=== PATIENT | female | born 1970 | race Asian ===

== ENCOUNTER → 2017-08-27 | Outpatient (CLI) | payer OTHER | END | disposition home or self-care (01) | LOC: KCIC US 14:23 | DX: D25.9 Leiomyoma of uterus, unspecified (principal); N88.8 Other specified noninflammatory disorders of cervix uteri | CPT/HCPCS: 76830; 76856 ==

== ENCOUNTER → 2017-09-19 | Day surgery (SDC) | payer OTHER ==
[~2017-09-19] MED LIST: IV RINGERS,LACTATED 1000ML 1,000 ML IV; LIDOCAINE 1% PF 2 ML VIAL. ID; LIDOCAINE 2% 100 MG/5 ML SYRINGE.; MORPHINE SULFATE 4 MG/ML DISP.SYRIN. IV; ONDANSETRON PF 4 MG/2 ML VIAL. IV; PROCHLORPERAZINE 10 MG/2 ML VIAL. IV; PROPOFOL 40 ML IV; fentaNYL PF VIAL 100 MCG/2 ML VIAL IV
[2017-09-19 10:39] LABS: NEG OBC UR NEG; POS OBC UR POS; U PREG PATIENT NEGATIVE (NEG)
== END | disposition home or self-care (01) ==
LOC: ENDOS 09:15
DX: K64.2 Third degree hemorrhoids (principal); K63.5 Polyp of colon; K25.9 Gastric ulcer, unspecified as acute or chronic, without hemorrhage or perforation; K21.0 Gastro-esophageal reflux disease with esophagitis; K29.50 Unspecified chronic gastritis without bleeding; K31.89 Other diseases of stomach and duodenum; E11.9 Type 2 diabetes mellitus without complications; E03.9 Hypothyroidism, unspecified; D50.9 Iron deficiency anemia, unspecified; Z83.3 Family history of diabetes mellitus; Z79.84 Long term (current) use of oral hypoglycemic drugs; Z98.890 Other specified postprocedural states; Z79.899 Other long term (current) drug therapy
CPT/HCPCS: 43239; 81025; 88305; 88342; J2704

== ENCOUNTER 2018-01-01 07:28 | Inpatient (IN) | payer OTHER ==
[2018-01-01] MEDS: IV RINGERS,LACTATED 1000ML 1,000 ML IV (07:00)
[~2018-01-01 07:28] MED LIST changes: -IV RINGERS,LACTATED 1000ML 1,000 ML IV; -LIDOCAINE 2% 100 MG/5 ML SYRINGE.; +MORPHINE SULFATE 2 MG/ML DISP.SYRIN. IV; -MORPHINE SULFATE 4 MG/ML DISP.SYRIN. IV; -PROPOFOL 40 ML IV
[2018-01-01] MEDS ORDERED: fentaNYL PF VIAL 100 MCG/2 ML VIAL ×3 (08:49→12:52)
[2018-01-01] MEDS ORDERED: ROCURONIUM 50 MG/5 ML VIAL. (08:49)
[2018-01-01] MEDS ORDERED: PROPOFOL 20 ML IV (08:49)
[2018-01-01] MEDS ORDERED: LIDOCAINE 2% PF Vial for OR 5 ML VIAL. (08:49)
[2018-01-01 09:07] LABS: POC GLUCOSE 119 mg/dL (70-99)
[2018-01-01 09:16] LABS: ADD MAN DIFF? NO
[2018-01-01 09:19] LABS: BASO # 0.1 x10^3/uL (0.0-0.2); BASO % 2 % (0-3); EOS # 0.1 x10^3/uL (0.0-0.7); EOS % 2 % (0-3); HEMATOCRIT 27.9 % (36.0-47.0); HEMOGLOBIN 8.5 g/dL (12.0-15.5); LYMPH # 1.4 x10^3/uL (1.0-4.8); LYMPH % 27 % (24-48); MEAN CORPUSCULAR HEMOGLOBIN 18 pg (25-35); MEAN CORPUSCULAR HGB CONC 30 g/dL (31-37); MEAN CORPUSCULAR VOLUME 59 fL (79-100); MONO # 0.5 x10^3/uL (0.0-1.1); MONO % 10 % (0-9); NEUT # 3.1 x10^3uL (1.8-7.7); NEUT % 60 % (31-73); PLATELET COUNT 299 x10^3/uL (140-400); RED BLOOD COUNT 4.74 x10^6/uL (3.50-5.40); RED CELL DISTRIBUTION WIDTH 21.7 % (11.5-14.5); WHITE BLOOD COUNT 5.2 x10^3/uL (4.0-11.0)
[2018-01-01 09:34] LABS: INR 1.1 (0.8-1.1); PARTIAL THROMBOPLASTIN TIME 29 SEC (24-38); PROTHROMBIN TIME PATIENT 13.5 SEC (11.7-14.0)
[2018-01-01 09:44] LABS: PLT ESTIMATE ADEQUATE (ADEQUATE)
[2018-01-01 09:46] LABS: ANISOCYTOSIS MOD; HYPOCHROMIA PRESENT; MICROCYTOSIS MARKED; POLYCHROMASIA SLIGHT
[2018-01-01 09:47] LABS: OVALOCYTES PRESENT
[2018-01-01] MEDS ORDERED: DEXAMETHASONE SOD PHOS 20 MG/5 ML VIAL. (09:47)
[2018-01-01] MEDS ORDERED: DESFLURANE 61 TO 120 MINUTES IH (09:47)
[2018-01-01] MEDS ORDERED: FAMOTIDINE 20 MG/2 ML VIAL (09:52)
[2018-01-01] MEDS ORDERED: ONDANSETRON PF 4 MG/2 ML VIAL. (10:00)
[2018-01-01] MEDS ORDERED: GLYCOPYRROLATE 1 MG/5 ML VIAL. (10:01)
[2018-01-01] MEDS ORDERED: NEOSTIGMINE 10 MG/10 ML VIAL. (10:01)
[2018-01-01] MEDS ORDERED: ePHEDrine PF IN SALINE 50 MG/5 ML DISP.SYRIN IV (10:15)
[2018-01-01] MEDS: GELATIN SPONGE SIZE 100. (11:45)
[2018-01-01] MEDS ORDERED: ONDANSETRON PF 4 MG/2 ML VIAL. IV (12:45)
[2018-01-01] MEDS ORDERED: PROCHLORPERAZINE 10 MG/2 ML VIAL. (12:52)
[2018-01-01 13:04] LABS: POC GLUCOSE 146 mg/dL (70-99)
[2018-01-01] MEDS: MORPHINE SULFATE 2 MG/ML DISP.SYRIN. IV ×2 (15:27→17:59)
[2018-01-01] MEDS ORDERED: HYDROmorphone 2 MG/ML VIAL IV (18:00)
[2018-01-01] MEDS: MORPHINE SULFATE 4 MG/ML DISP.SYRIN. IV (19:53)
[2018-01-01] MEDS ORDERED: DEXTROSE 50% 25 GM / 50ML DISP.SYRIN. IV (21:15)
[2018-01-01 21:20] LABS: POC GLUCOSE 132 mg/dL (70-99)
[2018-01-02] MEDS: IV NORMAL SALINE 1000ML BAG 1,000 ML IV (00:21)
[2018-01-02] MEDS: MORPHINE SULFATE 4 MG/ML DISP.SYRIN. IV ×2 (00:22→04:47)
[2018-01-02 05:17] LABS: HEMATOCRIT 24.5 % (36.0-47.0)
[2018-01-02 06:04] LABS: HEMOGLOBIN 7.4 g/dL (12.0-15.5)
[2018-01-02 08:14] LABS: POC GLUCOSE 120 mg/dL (70-99)
[2018-01-02] MEDS: oxyCODONE/APAP 5/325 1 TAB TABLET PO ×4 (10:20→23:23)
[2018-01-02 21:56] LABS: IMMEDIATE SPIN CROSSMATCH 1 4
[2018-01-02] MEDS: ACETAMINOPHEN 325 MG TABLET. PO (22:00)
[2018-01-03] MEDS: diphenhydrAMINE HCL 25 MG CAPSULE PO (04:46)
[2018-01-03] MEDS: oxyCODONE/APAP 5/325 1 TAB TABLET PO ×4 (05:46→20:09)
[2018-01-03 06:27] LABS: HEMATOCRIT 29.1 % (36.0-47.0)
[2018-01-03 06:27] LABS: HEMOGLOBIN 9.2 g/dL (12.0-15.5)
[2018-01-03] MEDS: DOCUSATE SODIUM 100 MG CAPSULE. PO ×2 (08:33→20:09)
[2018-01-03 22:33] LABS: POC GLUCOSE 163 mg/dL (70-99)
[2018-01-04] MEDS: oxyCODONE/APAP 5/325 1 TAB TABLET PO ×3 (00:30→11:59)
[2018-01-04 08:19] LABS: POC GLUCOSE 122 mg/dL (70-99)
[2018-01-04] MEDS: DOCUSATE SODIUM 100 MG CAPSULE. PO (11:58)
== END 2018-01-04 15:14 | disposition home or self-care (01) | DRG 743 ==
LOC: OPSVCIP 07:28 → 3 NORTH 15:05
PROVIDERS: Obstetrics & Gynecology
PROC: 0UT90ZZ Resection of Uterus, Open Approach (ICD-10-PCS; principal; 2018-01-01 09:30)
PROC: 0UT20ZZ Resection of Bilateral Ovaries, Open Approach (ICD-10-PCS; 2018-01-01 09:30)
PROC: 0UT70ZZ Resection of Bilateral Fallopian Tubes, Open Approach (ICD-10-PCS; 2018-01-01 09:30)
PROC: 30233N1 Transfusion of Nonautologous Red Blood Cells into Peripheral Vein, Percutaneous Approach (ICD-10-PCS; 2018-01-01 09:30)
DX: D25.9 Leiomyoma of uterus, unspecified (principal); K66.0 Peritoneal adhesions (postprocedural) (postinfection); N92.0 Excessive and frequent menstruation with regular cycle; D64.9 Anemia, unspecified
CPT/HCPCS: 36415; 71046; 82962; 84702; 85014; 85018; 85025; 85610; 85730; 86850; 86900; 86901; 86920; 88307; 93005; A7015; C1781; J0690; J1100; J2001; J2270; J2405; J2704; J2710; J3010; J3490; J7030; J7120; P9016; S0028

== ENCOUNTER → 2019-04-29 | Outpatient (CLI) | payer OTHER ==
[2018-01-04 14:10] VITALS: BP 99/54
[~2019-04-29] MED LIST changes: +ACET325T9 PO; +LEVO25TA4 PO; -LIDOCAINE 1% PF 2 ML VIAL. ID; +LORA10TA3 PO; +METF850T8 PO; -MORPHINE SULFATE 2 MG/ML DISP.SYRIN. IV; -ONDANSETRON PF 4 MG/2 ML VIAL. IV; -PROCHLORPERAZINE 10 MG/2 ML VIAL. IV; -fentaNYL PF VIAL 100 MCG/2 ML VIAL IV
--- NOTE | 2019-04-29 17:29 | KCIC ---
PQRS Compliance Statement: One or more of the following individualized dose reduction techniques were utilized for this examination: 1. Automated exposure control 2. Adjustment of the mA and/or kV according to patient size 3. Use of iterative reconstruction technique PQRS Compliance Statement: One or more of the following individualized dose reduction techniques were utilized for this examination: 1. Automated exposure control 2. Adjustment of the mA and/or kV according to patient size 3. Use of iterative reconstruction technique CT maxillofacial without contrast 04/29/2019 1:30 PM INDICATION: Face pain. Right-sided facial pain with sinus congestion. COMPARISON: None available TECHNIQUE: Multiple axial CT images of the maxilla facial structures were obtained without intravenous contrast. FINDINGS: Head and maxillofacial: Osseous orbits are intact. Globes are spherical and contour. There is no lens dislocation. Extraocular muscles are intact. No intraconal or extraconal mass is identified. Skull base is intact. Nasal bones are intact. Nasal septum is predominantly midline. Mild mucosal thickening of the left maxillary sinus. Dense calcification noted at the base of the right maxillary sinus, nonspecific. No acute fracture of the paranasal sinuses is identified. Pterygoid plates are intact. Temporomandibular joints are well aligned. Mastoid air cells are well aerated. Middle ear cavities are well aerated. Visualized nasopharynx and oropharynx are intact. Soft tissues are normal. Maxilla and mandible are intact. Visualized dentition appear normal. IMPRESSION: 1. Mild mucosal thickening of the left maxillary sinus with patent ostiomeatal units. 2. Dense calcification noted at the base of the right maxillary sinus which may reflect sequela of chronic inflammation. Electronically signed by: Lisa Mcmahon MD (04/29/2019 5:26 PM) [id number]
== END | disposition home or self-care (01) ==
LOC: KCIC CT 13:12
PROVIDERS: ATTEND Family Medicine
DX: J34.89 Other specified disorders of nose and nasal sinuses (principal)
CPT/HCPCS: 70486